=== PATIENT | male | born 2000 | race Caucasian/White ===

== ENCOUNTER 2022-05-23 10:59 | Emergency (ER) | payer SELFPAY ==
[~2022-05-23] VITALS: Ht 180.3 cm; Wt 56.0 kg
[2022-05-23 11:11] VITALS: BP 143/95
== END 2022-05-23 15:16 | disposition left against medical advice (07) ==
LOC: ER 10:59
DX: Z53.21 Procedure and treatment not carried out due to patient leaving prior to being seen by health care provider (principal)